=== PATIENT | female | born 1980 | race Caucasian/White ===

== ENCOUNTER 2018-08-17 09:57 | Emergency (ER) | payer MEDICAID ==
[~2018-08-17] VITALS: Ht 160 cm; Wt 58.0 kg
[2018-08-17 10:04] VITALS: BP 141/71; PULSE 89; RESP 18; Ht 160 cm; Wt 58.0 kg
[2018-08-17] MEDS ORDERED: LORAZEPAM 1 MG TAB PO ONE (12:00)
[2018-08-17] MEDS ORDERED: FAMOTIDINE 20 MG TAB PO ONE (12:00)
[2018-08-17] MEDS ORDERED: DIPHENHYDRAMINE 25 MG CAP PO ONE (12:00)
[2018-08-17] MEDS ORDERED: METOCLOPRAMIDE 10 MG TAB PO ONE (12:00)
[2018-08-17] MEDS ORDERED: FAMO-96 PO (12:29)
[2018-08-17] MEDS ORDERED: METO10TA92 PO (12:29)
--- NOTE | 2018-08-17 12:37 | ERD ---
ER Documentation Chief Complaint Chief Complaint anxiety , unable to sleep x 1 day HPI 37-year-old female patient with a past medical history of anxiety presents to the ED complaining of vomiting that occurred last night. States that it feels like an acidic sensation. She has had a few episodes of nonbilious nonbloody vomiting. Reports that she is taking amitriptyline every other day for her anxiety. States that usually this works for her symptoms of anxiety and is more concerned about her vomiting. Denies any chest pain, shortness of breath, constipation, diarrhea, neck stiffness, abdominal pain. ROS All systems reviewed and are negative except as per history of present illness. Medications Home Meds Active Scripts Famotidine* (Pepcid*) 20 Mg Tablet, 20 MG PO BID, #30 TAB Prov:MELISSA VUONG PA-C 08/17/18 Metoclopramide* (Reglan*) 10 Mg Tablet, 10 MG PO Q6 PRN for NAUSEA AND/OR VOMITING, #10 TAB Prov:MELISSA VUONG PA-C 08/17/18 Allergies Allergies: Coded Allergies: No Known Allergy (Unverified , 08/17/18) PMhx/Soc Medical and Surgical Hx: pt denies Medical Hx, pt denies Surgical Hx Hx Alcohol Use: No Hx Substance Use: No FmHx Family History: No diabetes, No coronary disease Physical Exam Vitals Vital Signs Date Temp Pulse Resp B/P (MAP) Pulse Ox O2 O2 Flow FiO2 Time Delivery Rate 08/17/18 98.2 89 18 141/71 98 10:04 (94) Physical Exam Const: Opc-[id number], well-nourished. In no acute distress. Head: Atraumatic, normocephalic Eyes: Normal Conjunctiva without injection. No purulent discharge. ENT: Normal external ear, nose. Moist oropharynx without tonsillar exudates. Non-erythematous pharynx. Uvula midline. No drooling. No trismus. Neck: No cervical midline tenderness. Full range of motion. No meningismus. No cervical lymphadenopathy. No JVD. Resp: Clear to auscultation bilaterally. No wheezing, rhonchi, rales, or crackles. No accessory muscle use. No retractions. Cardio: Regular rate and rhythm. No murmurs, rubs or gallops. Abd: Soft, nontender, non distended. Normal bowel sounds. No palpable masses. No rebound tenderness. No guarding. Negative McBurney's point. Negative psoas sign. Negative obturator sign. Skin: No petechiae or rashes Back: No midline tenderness. No CVA tenderness. Ext: No cyanosis, or edema. Neur: Awake and alert. Normal gait. Normal coordination. Psych: Normal Mood and Affect Results 24 hrs Current Medications Medications Dose Sig/Swapnil Start Time Status Last (Trade) Ordered Route PRN Stop Time Admin Dose Reason Admin Lorazepam 1 mg ONCE ONCE 08/17/18 Cancel (Ativan) PO 12:00 08/17/18 12:01 10 mg ONCE ONCE 08/17/18 DC 08/17/18 Metoclopramid PO 12:00 11:51 e HCl 08/17/18 12:01 (Reglan) 25 mg ONCE ONCE 08/17/18 DC 08/17/18 Diphenhydrami PO 12:00 11:51 ne HCl 08/17/18 12:01 (Benadryl) Famotidine 20 mg ONCE ONCE 08/17/18 DC 08/17/18 (Pepcid) PO 12:00 11:51 08/17/18 12:01 Procedures/MDM 37-year-old female patient with a past medical history of anxiety presents to the ED stating that she had a few episodes of nonbilious nonbloody vomiting yesterday. Patient is afebrile and nontoxic-appearing. Urine was ordered, patient denied wanting this test and stated that she is not . All medications administered the patient here in the ED are safe in . Patient was given Pepcid, Reglan, Benadryl with improvement of her symptoms. P.o. challenge successful. States that her appetite has improved. Reports no abdominal pain. Differentials include GERD versus anxiety. Low suspicion for cholecystitis, choledocholithiasis, cholangitis, pancreatitis, appendicitis, bowel obstruction, ileus, volvulus, nephrolithiasis, pyelonephritis, hepatitis, perforated viscus, diverticulitis, strangulated/incarcerated hernia, DKA, acute abdomen, mesenteric ischemia or other emergent conditions. Low suspicion for acute myocardial infarction, pneumothorax, pericarditis, myocarditis, endocarditis, pneumonia, cardiac tamponade, pulmonary embolism, pleural effusion, AAA, aortic dissection, Boerhaave's syndrome, cardiac dysrhythmias,meningitis, intracranial bleed, seizure, stroke, TIA or other emergent conditions. Diagnosis: Anxiety, Vomiting Discharge medications: Pepcid, Reglan Follow up with primary care physician in 1-2 days. Instructed patient to return to the ED sooner for any worsening symptoms. Patient's questions were answered. Patient is hemodynamically stable. Patient understood and agreed with discharge plan. Patient discharged stable. Disclaimer: Inadvertent spelling and grammatical errors are likely due to EHR/dictation software use and do not reflect on the overall quality of patient care. Also, please note that the electronic time recorded on this note does not necessarily reflect the actual time of the patient encounter. Departure Diagnosis: Primary Impression: Anxiety Additional Impression: Vomiting Vomiting type: unspecified Vomiting Intractability: unspecified Nausea presence: unspecified Qualified Codes: R11.10 - Vomiting, unspecified Condition: Stable Patient Instructions: Lifestyle Changes for Controlling GERD, Anxiety Reaction, Gerd (Adult), Vomiting (6Y-Adult) Referrals: [facility] YOU HAVE RECEIVED A MEDICAL SCREENING EXAM AND THE RESULTS INDICATE THAT YOU DO NOT HAVE A CONDITION THAT REQUIRES URGENT TREATMENT IN THE EMERGENCY DEPARTMENT. FURTHER EVALUATION AND TREATMENT OF YOUR CONDITION CAN WAIT UNTIL YOU ARE SEEN IN YOUR DOCTORS OFFICE WITHIN THE NEXT 1-2 DAYS. IT IS YOUR RESPONSIBILITY TO MAKE AN APPOINTMENT FOR FOLOW-UP CARE. IF YOU HAVE A PRIMARY DOCTOR --you should call your primary doctor and schedule an appointment IF YOU DO NOT HAVE A PRIMARY DOCTOR YOU CAN CALL OUR PHYSICIAN REFERRAL HOTLINE AT IF YOU CAN NOT AFFORD TO SEE A PHYSICIAN YOU CAN CHOSE FROM THE FOLLOWING [facility] [address] [facility]. [facility] [address] [facility] [address] [facility] [address] [facility] [address] [facility]. [facility]. [address] [facility]. [facility] YOU HAVE RECEIVED A MEDICAL SCREENING EXAM AND THE RESULTS INDICATE THAT YOU DO NOT HAVE A CONDITION THAT REQUIRES URGENT TREATMENT IN THE EMERGENCY DEPARTMENT. FURTHER EVALUATION AND TREATMENT OF YOUR CONDITION CAN WAIT UNTIL YOU ARE SEEN IN YOUR DOCTORS OFFICE WITHIN THE NEXT 1-2 DAYS. IT IS YOUR RESPONSIBILITY TO MAKE AN APPOINTMENT FOR FOLOW-UP CARE. IF YOU HAVE A PRIMARY DOCTOR --you should call your primary doctor and schedule and appointment IF YOU DO NOT HAVE A PRIMARY DOCTOR YOU CAN CALL OUR PHYSICIAN REFERRAL HOTLINE AT . IF YOU CAN NOT AFFORD TO SEE A PHYSICIAN YOU CAN CHOSE FROM THE FOLLOWING [facility] INSTITUTIONS: [facility] [address] [place] [address] [facility] [address] [place] [address] [facility] + [facility] [address] [place] [address] [facility]ENT [facility]SPECIALTIES Additional Instructions: Call your primary care doctor TOMORROW for an appointment during the next 2-3 days.See the doctor sooner or return here if your condition worsens before your appointment time. MELISSA VUONG PA-C August 17, 2018 12:37
== END 2018-08-17 12:38 | disposition home or self-care (01) ==
LOC: FTE 09:57
DX: F41.9 Anxiety disorder, unspecified (principal); R11.10 Vomiting, unspecified
CPT/HCPCS: Z7502; Z7610; 99283